=== PATIENT | female | born 1950 | race Caucasian/White ===

== ENCOUNTER → 2017-06-25 | Outpatient (CLI) | payer OTHER ==
[~2017-06-25] MED LIST: CALCAVITDA PO; FISH1000 PO; NAPR220 PO; PRAVASTATIN SOD10 MG PO
[2017-06-25 09:53] LABS: BASOPHILS ABSOLUTE AUTO 0.03 K/mm3 (0.00-0.23); BASOPHILS PERCENT AUTO 0 % (0-2); EOSINOPHILS PERCENT AUTO 0 % (0-6); Hematocrit 46.6 % (33.0-51.0); Hemoglobin 15.9 g/dL (11.5-16.0); IMMATURE GRAN ABSOLUTE AUTO 0.06 K/mm3 (0.00-0.10); IMMATURE GRAN PERCENT AUTO 1 % (0-1); LYMPHOCYTES ABSOLUTE AUTO 1.74 K/mm3 (0.84-5.20); LYMPHOCYTES PERCENT AUTO 16 % (21-46); MONOCYTES ABSOLUTE AUTO 0.49 K/mm3 (0.16-1.47); MONOCYTES PERCENT AUTO 4 % (4-13); Mean Corpuscular HGB 29.6 pg (26.0-34.0); Mean Corpuscular HGB Conc 34.1 g/dL (31.5-36.5); Mean Corpuscular Volume 87 fL (80-100); Mean Platelet Volume 9.3 fL (9.1-12.4); NEUTROPHILS PERCENT AUTO 79 % (41-73); Platelet Count 295 K/mm3 (150-400); RDW Coefficient Variation 13.6 % (11.7-14.2); Red Blood Cell Count 5.38 M/mm3 (3.80-5.20); White Blood Cell Count 11.22 K/mm3 (4.00-11.30)
[2017-06-25 10:10] LABS: Alanine Aminotransfer (ALT/SGP 18 U/L (12-78); Albumin, Blood 4.1 g/dL (3.4-5.0); Albumin/Globulin Ratio 1.1 (0.8-1.8); Alk Phos 180 U/L (40-126); Anion Gap 12 mmol/L (6-16); Aspartate Aminotrans (AST/SGOT 18 U/L (12-37); Bilirubin, Total 0.4 mg/dL (0.1-1.0); Blood Urea Nitrogen 10 mg/dL (8-24); Bun/Creatinine Ratio 12.7 (12.0-20.0); CO2, Blood 26 mmol/L (21-32); Calcium, Blood 9.3 mg/dL (8.5-10.1); Chloride, Blood 104 mmol/L (98-108); Creatinine, Blood 0.79 mg/dL (0.40-1.00); Globulin, Blood 3.9 g/dL (2.2-4.0); Glomerular Filtration Rate >60 (60-); Glucose, Blood 155 mg/dL (70-99); Potassium, Blood 3.6 mmol/L (3.5-5.5); Sodium, Blood 142 mmol/L (136-145); Thyroid Stimulating Hormone 3.063 uIU/mL (0.360-4.800); Troponin I <0.017 ng/mL (0.000-0.040)
== END ==
LOC: LAB EV 09:43 → LAB SHORT 09:43
PROVIDERS: Emergency Medicine
DX: R00.0 Tachycardia, unspecified (principal)
CPT/HCPCS: 80053; 84443; 84484; 85025

== ENCOUNTER 2018-12-13 09:18 | Day surgery (SDC) | payer OTHER ==
[~2018-12-13] VITALS: Ht 165.1 cm; Wt 85.5 kg
[~2018-12-13 09:18] MED LIST changes: +ACET500 PO; +MAGNESIUM CITR100 MG PO; +ROXICODONE5 MG PO
--- NOTE | 2018-12-13 11:37 | NUR ---
12/13/[address] INTO ROOM TO CONSULT WITH PATIENT. PATIENT STATES SYMPTOMS AND PAIN HAS IMPROVED. DR. MALDONADO AND PATIENT BOTH IN AGREEMENT TO CANCEL PROCEDURE TODAY.
== END 2018-12-13 10:52 | disposition home or self-care (01) ==
LOC: ORSCSDS 09:18
DX: M48.062 Spinal stenosis, lumbar region with neurogenic claudication (principal); Z53.9 Procedure and treatment not carried out, unspecified reason
CPT/HCPCS: J1040

== ENCOUNTER → 2021-03-16 | Outpatient (CLI) | payer OTHER | END | disposition home or self-care (01) | LOC: LAB SHORT 14:56 | DX: D22.61 Melanocytic nevi of right upper limb, including shoulder (principal) | CPT/HCPCS: 88305 ==

== ENCOUNTER 2024-12-16 12:51 | Day surgery (SDC) | payer OTHER ==
[~2024-12-16] VITALS: Ht 162.6 cm; Wt 85.0 kg
[~2024-12-16 12:51] MED LIST changes: +Glycopyrrolate 0.2 MG/ML 1MLVIAL ONE; +Ondansetron HCl 2 MG / ML 2ML Vial ONE
[2024-12-16] MEDS ORDERED: ATORVASTATIN CA20 MG (14:05)
[2024-12-16] MEDS ORDERED: ATENOLOL25 MG (14:06)
[2024-12-16] MEDS ORDERED: Lidocaine HCl 2% Jelly 120MG/6ML SYR (20MG PER ML) ONE (14:57)
[2024-12-16 15:14] VITALS: BP 147/70
== END 2024-12-16 15:36 | disposition home or self-care (01) ==
LOC: ORSCSDS 12:51
PROVIDERS: Surgery
PROC: 0DBK8ZX Excision of Ascending Colon, Via Natural or Artificial Opening Endoscopic, Diagnostic (ICD-10-PCS; principal; 2024-12-16 15:00)
DX: Z12.11 Encounter for screening for malignant neoplasm of colon (principal); D12.2 Benign neoplasm of ascending colon; K64.8 Other hemorrhoids; E78.5 Hyperlipidemia, unspecified; Z79.899 Other long term (current) drug therapy
CPT/HCPCS: 88305; A9270; J2003; J2405; J2704; J7120